=== PATIENT | male | born 1980 | race Caucasian/White ===

== ENCOUNTER 2018-07-07 21:42 | Emergency (ER) | payer OTHER ==
[~2018-07-07] VITALS: Ht 198.1 cm; Wt 104.3 kg
[2018-07-08] MEDS ORDERED: CEFUROXIME500 MG PO (00:37)
[2018-07-08] MEDS ORDERED: KETO10TA2 PO ×2 (00:37)
== END 2018-07-08 00:48 | disposition home or self-care (01) ==
LOC: ER 21:42
DX: H60.8X1 Other otitis externa, right ear (principal)